=== PATIENT | female | born 1990 | race Two or more races ===

== ENCOUNTER 2017-05-29 13:15 | Emergency (ER) | payer BC ==
[~2017-05-29] VITALS: Ht 167.6 cm; Wt 102.1 kg
[2017-05-29] MEDS ORDERED: PREN-58 PO (13:28)
== END 2017-05-29 16:13 | disposition home or self-care (01) ==
LOC: ER 13:19
DX: J06.9 Acute upper respiratory infection, unspecified (principal); Z88.0 Allergy status to penicillin
CPT/HCPCS: 86403-TC; 87070-TC; 87400; A4606